=== PATIENT | male | born 1990 | race Caucasian/White ===

== ENCOUNTER 2020-07-29 18:01 | Emergency (ER) | payer MEDICAID ==
[~2020-07-29] VITALS: Ht 167.6 cm; Wt 71.0 kg
[2020-07-29 18:07] VITALS: BP 172/108
== END 2020-07-29 22:14 | disposition left against medical advice (07) ==
LOC: ER 18:01
DX: Z53.21 Procedure and treatment not carried out due to patient leaving prior to being seen by health care provider (principal)